=== PATIENT | female | born 1955 | race Caucasian/White ===

== ENCOUNTER 2023-10-20 04:06 | Day surgery (SDC) | payer OTHER ==
[2023-10-19 12:11] VITALS: BMI 32.3
[2023-10-20] MEDS ORDERED: ceFAZolin SODIUM 1 GM VIAL ONE (11:22)
[2023-10-20] MEDS ORDERED: LIDOCAINE HCL/PF 2% SDV 5ML VIAL ONE (11:22)
[2023-10-20] MEDS ORDERED: ONDANSETRON 4 MG/2 ML VIAL ONE (11:22)
[2023-10-20] MEDS ORDERED: SODIUM CHLORIDE 0.9% P/F 10 ML VIAL IJ ONE (11:22)
[2023-10-20] MEDS ORDERED: DEXAMETHASONE SOD PHOSPHATE 4 MG/1 ML VIAL ONE (11:22)
[2023-10-20] MEDS ORDERED: PROPOFOL 40 ML ONE (11:27)
[2023-10-20] MEDS ORDERED: MIDAZOLAM HCL 2 MG/2 ML SINGLE DOSE VIAL ONE (11:30)
[2023-10-20] MEDS ORDERED: SEVOFLURANE 250 ML BTL ONE (12:08)
[2023-10-20] MEDS ORDERED: LIDOCAINE HCL 1%, 10 MG/ML (20ML VIAL) ONE (12:51)
[2023-10-20] MEDS ORDERED: LABETALOL HCL 20 MG/4 ML VIAL ONE (13:33)
[2023-10-20] MEDS ORDERED: ceFAZolin SODIUM 1 GM VIAL IVPB ONE (13:34)
[2023-10-20] MEDS ORDERED: LIDOCAINE HCL 1% PRESERVATIVE FREE - 30ML VIAL IJ ONE (13:35)
[2023-10-20] MEDS ORDERED: oxyCODONE HCL 5 MG TABLET PO PRN (14:06)
[2023-10-20] MEDS ORDERED: LACTATED RINGERS SOLUTION 1,000 ML IV SCH (14:15)
[2023-10-20 17:01] VITALS: RESP 18; TEMP 97.5
[2023-10-20 17:36] VITALS: BP 125/72; PULSE 67
== END 2023-10-20 17:20 | disposition home or self-care (01) ==
LOC: JASU-SURG 04:06
PROVIDERS: ATTEND Surgery
PROC: 0HBT0ZZ Excision of Right Breast, Open Approach (ICD-10-PCS; principal; 2023-10-20 11:30)
DX: N60.91 Unspecified benign mammary dysplasia of right breast (principal)
CPT/HCPCS: 19281; 76098-TC-FY; 82962; 88307-TC; 88341-TC; 88342-TC; 94760